=== PATIENT | male | born 1940 | race Caucasian/White ===

== ENCOUNTER → 2020-11-05 | Outpatient (CLI) | payer OTHER ==
[~2020-11-05] MED LIST: ARICEPT10 MG PO; ASA81BEC PO; ATORVASTATIN CA80 MG PO; CARVEDILOL25 MG PO; CHLORTHALIDONE25 MG PO; FUROSEMIDE 40 M40 M1 PO; K-DUR 20 MEQ T20 MEQ PO; METFORMIN HCL500 M3 PO; TYLENOL EXTRA500 MG PO; VITAMIN D3125 MC2 PO; WARFARIN SODIUM5 MG PO
== END ==
LOC: LAB 10:36
PROVIDERS: ATTEND Surgery
DX: Z01.812 Encounter for preprocedural laboratory examination (principal); Z20.822 Contact with and (suspected) exposure to COVID-19